=== PATIENT | female | born 1950 | race Caucasian/White ===

== ENCOUNTER 2019-11-21 10:18 | Outpatient (CLI) | payer MEDICARE, MEDICAID, SELFPAY ==
--- NOTE | 2019-11-21 11:07 | MR_ITS ---
WS: [id number] MRI HEAD WITHOUT CONTRAST TECHNIQUE: Sagittal T1, T2 axial, T2 axial FLAIR, axial and coronal T1 images, axial susceptibility w eighted imaging, axial diffusion weighted images, and coronal T2 images were obtained. CLINICAL INFORMATION: CHRONIC HEADACHE COMPARISON: FINDINGS: No evidence of restricted diffusion to suggest acute ischemia. Ventricular system and basal cisterns are patent. Moderate small vessel changes with moderate parenchymal volume loss. This is progressed s yoli 2012. Normal optic chiasm and pituitary infundibulum. Stable T1 hyperintensity in the basal gang digna likely benign. Temporal lobes and hippocampal formations are normal in appearance with mild symme tric atrophy Small vessel changes in the anh. No hemosiderin on the susceptibility weighted images. Normal vascul ar flow voids at the skull base. No extra-axial fluid collections. Mild mucosal thickening in the eth moid air cells. Visualized upper cervical spine is normal. Incidental slightly low-lying cerebellar t onsils MR/MR head wo con* [id number] IMPRESSION: 1. No evidence of restricted diffusion to suggest acute ischemia. 2. Moderate small vessel changes with moderate parenchymal volume loss progres sed since 2012. 3. Small vessel changes in the anh. 4. Partial opacification with mucosal thickening in the ethmoid air cells. Mas toid air cells are well aerated. 5. No hemosiderin on susceptibly weighted images.
== END 2019-11-21 10:19 | disposition home or self-care (01) ==
PROVIDERS: Family Provider Family Medicine; PCP Family Medicine; Referring Provider Family Medicine; Visit Provider Family Medicine
DX: R51 Headache (principal); G89.29 Other chronic pain
CPT/HCPCS: 70551